=== PATIENT | male | born 1965 | race Caucasian/White ===

== ENCOUNTER 2017-03-01 22:53 | Emergency (ER) | payer OTHER ==
[~2017-03-01] VITALS: Ht 172.7 cm; Wt 105.0 kg
[2017-03-01 22:58] VITALS: Ht 172.7 cm; Wt 105.0 kg
[2017-03-02] MEDS ORDERED: OLOP5DRO12 BOTH EYES (02:12)
[2017-03-02] MEDS ORDERED: BEN50 PO (02:13)
--- NOTE | 2017-03-18 14:37 | ERD ---
ER Documentation Chief Complaint Chief Complaint bilateral eye lids rash/swelling/itch x 3 weeks, worse today HPI 51-year-old male with history of allergies presenting with a chief complaint of bilateral eye pruritus, swelling 3 weeks. Has seen PCP and was diagnosed with allergic conjunctivitis. Was not prescribed any medications. States there is no difference between today's symptoms and the symptoms 3 weeks ago. Denies decrease or change in vision. No eye pain. No sick contacts. No alleviating factors. Patient has no other complaints and describes no other associated manifestations. ROS All systems reviewed and are negative except as per history of present illness. Medications Home Meds Active Scripts Diphenhydramine Hcl* (Benadryl*) 50 Mg Cap, 50 MG PO Q6 Y for ITCHING, #30 CAP Prov:EVA NAILS PA-C 03/02/17 Olopatadine* (Patanol* Ophth) 0.1% - 5 Ml Drops, 1 DROP BOTH EYES BID, #1 EA Prov:EVA NAILS PA-C 03/02/17 PMhx/Soc Medical and Surgical Hx: pt denies Medical Hx Hx Cardiac Disorders: Yes (HTN) Hx Alcohol Use: No Hx Substance Use: No Hx Tobacco Use: No Smoking Status: Never smoker Physical Exam Physical Exam Const: Well-appearing 51-year-old male in no acute distress. Head: Atraumatic Eyes: Erythematous sclera. Swollen eyelids bilaterally with mild erythema and no warmth. No drainage or tenderness. EOMI, PERRLA, no nystagmus. ENT: Normal External Ears, Nose and Mouth. Neck: Full range of motion..~ No meningismus. Resp: Clear to auscultation bilaterally Cardio: Regular rate and rhythm, no murmurs Abd: Soft, non tender, non distended. Normal bowel sounds Skin: As noted in eye exam Back: No midline or flank tenderness Ext: No cyanosis, or edema Neur: Awake and alert Psych: Normal Mood and Affect Procedures/MDM 51-year-old male presenting with a chief complaint of bilateral eye pruritus and swelling 3 weeks. Most likely diagnosis is allergic conjunctivitis. I have no suspicion for acute right eye or endangerment of vision. Visual acuity obtained and was within normal limits. Otoscope exam unremarkable. Patient will be discharged with otic antihistamine drops. Have recommended follow-up with [facility]. I have spoke with the patient regarding their condition and future management. They have verbally responded that they understand their status and treatment plan. The patients vitals are stable, and their current condition is appropriate for discharge. The patient will be given discharge instructions with return precautions. Departure Diagnosis: Primary Impression: Allergic conjunctivitis Laterality: bilateral Qualified Code: H10.13 - Allergic conjunctivitis of both eyes Condition: Stable Patient Instructions: Conjunctivitis, Allergic Additional Instructions: Follow up with your PCP within the next 1-3 days for a more thorough evaluation and a possible referral to a specialist. Return the the emergency department immediately if symptoms worsen or change. If you have any questions regarding medications, ask your pharmacist or us before you leave. If any adverse reactions occur while taking your medications, discontinue the treatment and return to the emergency department immediately. Take your medications as directed, and complete the entire course of treatment. EVA NAILS PA-C Mar 18, 2017 14:37
== END 2017-03-02 02:25 | disposition home or self-care (01) ==
LOC: FTE 22:53
DX: H10.13 Acute atopic conjunctivitis, bilateral (principal)
CPT/HCPCS: 99283